=== PATIENT | male | born 2000 | race Caucasian/White ===

== ENCOUNTER 2022-03-06 04:55 | Emergency (ER) | payer OTHER ==
[~2022-03-06] VITALS: Ht 152.4 cm; Wt 88.0 kg
[2022-03-06 04:58] VITALS: BP 142/65
== END 2022-03-06 05:27 ==
LOC: ER 05:09
DX: S00.531A Contusion of lip, initial encounter (principal); S00.81XA Abrasion of other part of head, initial encounter; W50.1XXA Accidental kick by another person, initial encounter; Y93.89 Activity, other specified; Y92.89 Other specified places as the place of occurrence of the external cause; Y99.8 Other external cause status; Z87.891 Personal history of nicotine dependence
CPT/HCPCS: 99283